=== PATIENT | female | born 1945 | race Caucasian/White ===

== ENCOUNTER 2021-02-03 12:22 | Outpatient (CLI) | payer MEDICARE, SELFPAY ==
[2021-02-03 13:46] LABS: Free T4 Free Thyroxine 1.51 ng/mL (0.78-2.19); Vitamin D 25 Hydroxy 64.2 ng/mL
== END 2021-02-03 12:23 | disposition home or self-care (01) ==
LOC: ANHWCLAB 12:26
PROVIDERS: PCP Internal Medicine; Referring Provider Internal Medicine Endocrinology, Diabetes & Metabolism; Visit Provider Internal Medicine Endocrinology, Diabetes & Metabolism
DX: E03.9 Hypothyroidism, unspecified (principal); R79.89 Other specified abnormal findings of blood chemistry; E55.9 Vitamin D deficiency, unspecified
CPT/HCPCS: 36415; 82306; 84439; 84443

== ENCOUNTER 2021-02-06 12:51 | Outpatient (CLI) | payer MEDICARE, SELFPAY ==
--- NOTE | ~2021-02-06 | DEXA_ITS ---
Bone Density Report Name: CY ZUÑIGA Age: 75 Sex: Female Ethnicity: White Date of : 1945 Indication: osteopenia; height loss;postmenopausal Referring Provider: Sena Herron Study: Bone densitometry was performed. Exam Date: February 06, 2021 Accession number: [id number] Bone Density: Region BMD T-score Z-score Classification AP Spine (L1-L4) 0.810 -2.2 0.2 Osteopenia Femoral Neck (Left) 0.685 -1.5 0.6 Osteopenia Total Hip (Left) 0.772 -1.4 0.3 Osteopenia Total Hip Bilateral Avg 0.769 -1.5 0.3 Osteopenia Femoral Neck (Right) 0.661 -1.7 0.3 Osteopenia Total Hip (Right) 0.764 -1.5 0.3 Osteopenia World Health Organization criteria for BMD impression classify patients as: Normal (T-score at or above -1.0), Osteopenia (T-score between -1.0 and -2.5), or Osteoporosis (T-score at or below -2.5). 10-year Fracture Risk(1): Major Osteoporotic Fracture 9.9% Hip Fracture 2.1% Reported Risk Factors: [place] (), Neck BMD=0.661, BMI=20.1 (1) FRAX(R) Version 3.08. Fracture probability calculated for an untreated patient. Fracture probability may be lower if the patient has received treatment. Previous Exams: Region Exam Age BMD T-score BMD Change BMD Change Date g/cm2 vs Baseline vs Previous AP Spine(L1-L4) 02/06/2021 75 0.810 -2.2 0.017(2.1%) 0.017(2.1%) 01/06/2019 73 0.793 -2.3 Total Hip(Left) 02/06/2021 75 0.772 -1.4 0.018(2.3%) 0.018(2.3%) 01/06/2019 73 0.755 -1.5 Total Hip(Right) 02/06/2021 75 0.764 -1.5 -0.039(-4.9%)* -0.039(-4.9%)* 01/06/2019 73 0.803 -1.1 *Denotes significance at 95% confidence level, LSC for AP Spine = 0.022 g/cm2, LSC for Total Hip = 0.027 g/cm2 Clinical Information Provided by Patient: Has used the following medications: Vitamin D, Calcium Patient maximum height was 64 Menopause Age: 51 Onset of menses at age 18 Number of children 3 Impression: The patient has low bone mass, based on the Total Spine T-score. The patient has an estimated ten-year risk of hip fracture of 2.1% and an estimated ten-year risk of major fracture of 9.9%, based on the WHO FRAX algorithm. The BMD for the Total Hip(Right) decreased, changing by -4.9% since the last DXA exam. Discussion: BONE DENSITY IS LOW AT ONE OR MORE SKELETAL SITES. This patient's lowest T-score is low at one or more skeletal sites. It meets the World Health Organization's (WHO) criteria for ?low bone mass? (T-score b
== END 2021-02-06 12:52 | disposition home or self-care (01) ==
LOC: ANHIMG 12:56
PROVIDERS: PCP Internal Medicine; Visit Provider Internal Medicine Endocrinology, Diabetes & Metabolism
DX: N95.1 Menopausal and female climacteric states (principal); M85.88 Other specified disorders of bone density and structure, other site; M85.852 Other specified disorders of bone density and structure, left thigh; M85.851 Other specified disorders of bone density and structure, right thigh
CPT/HCPCS: 77080

== ENCOUNTER 2023-07-28 10:17 | Outpatient (CLI) | payer MEDICARE, SELFPAY ==
--- NOTE | ~2023-07-28 | DEXA_ITS ---
Bone Density Report Name: CY ZUÑIGA Age: 77 Sex: Female Ethnicity: White Date of : 1945 Indication: osteopenia; height loss; asthma or emphysema; Referring Provider: SUDHAKAR MORALES Study: Bone densitometry was performed. Exam Date: July 28, 2023 Accession number: [id number] Bone Density: Region BMD T-score Z-score Classification AP Spine(L1-L4) 0.812 -2.1 0.4 Osteopenia Femoral Neck (Left) 0.632 -2.0 0.2 Osteopenia Total Hip (Left) 0.787 -1.3 0.6 Osteopenia Femoral Neck (Right) 0.624 -2.0 0.1 Osteopenia Total Hip (Right) 0.755 -1.5 0.3 Osteopenia Total Hip Mean 0.771 -1.4 0.5 Osteopenia World Health Organization criteria for BMD impression classify patients as: Normal (T-score at or above -1.0), Osteopenia (T-score between -1.0 and -2.5), or Osteoporosis (T-score at or below -2.5). 10-year Fracture Risk(1): Major Osteoporotic Fracture 13% Hip Fracture 3.6% Reported Risk Factors: [place] (), Neck BMD=0.624, BMI=21.4 (1) FRAX(R) Version 3.08. Fracture probability calculated for an untreated patient. Fracture probability may be lower if the patient has received treatment. Previous Exams: Region Exam Age BMD T-score BMD Change BMD Change Date g/cm2 vs Baseline vs Previous AP Spine (L1-L4) 07/28/2023 77 0.812 -2.1 0.018 (2.3%)# 0.001 (0.1%)# 02/06/2021 75 0.810 -2.2 0.017 (2.1%) 0.017 (2.1%) 01/06/2019 73 0.793 -2.3 Total Hip(Left) 07/28/2023 77 0.787 -1.3 0.032 (4.2%)# 0.014 (1.8%)# 02/06/2021 75 0.772 -1.4 0.018 (2.3%) 0.018 (2.3%) 01/06/2019 73 0.755 -1.5 Total Hip(Right) 07/28/2023 77 0.755 -1.5 -0.047 (-5.9%) -0.008 (-1.1%) 02/06/2021 75 0.764 -1.5 -0.039 (-4.9%) -0.039 (-4.9%) 01/06/2019 73 0.803 -1.1 *Denotes significance at 95% confidence level, LSC for AP Spine = 0.022 g/cm2, LSC for Total Hip = 0.027 g/cm2 # Denotes dissimilar scan types or analysis methods Clinical Information Provided by Patient: Has used the following medications: Calcium, multivitamin Has the following medical conditions: Asthma or Emphysema Patient maximum height was 64 Menopause Age: 51 No regular weight bearing exercise Onset of menses at age 18 Number of children 3 Impression: The patient has low bone mass, based on the Total Spine T-score. The patient has an estimated ten-year risk of hip fracture of 3.6% and an estimated ten-year risk of major fra
== END 2023-07-28 10:18 | disposition home or self-care (01) ==
PROVIDERS: PCP Physician Assistant Medical; Visit Provider Internal Medicine Endocrinology, Diabetes & Metabolism
DX: M85.89 Other specified disorders of bone density and structure, multiple sites (principal)
CPT/HCPCS: 77080